=== PATIENT | female | born 1965 | race Two or more races ===

== ENCOUNTER → 2020-02-12 | Emergency (ER) | payer OTHER ==
[~2020-02-12] VITALS: Ht 157.5 cm; Wt 79.4 kg
[~2020-02-12] MED LIST: HYZAAR 100-251 UDTAB PO; NORVASC2.5 M1; ZYNCOF 20-400120 ML PO
== END | disposition home or self-care (01) ==
LOC: ER 17:47
DX: R31.29 Other microscopic hematuria (principal)

== ENCOUNTER 2021-08-20 14:39 | Emergency (ER) | payer OTHER ==
[~2021-08-20] VITALS: Ht 157.5 cm; Wt 81.6 kg
[2021-08-20] MEDS ORDERED: ALDACTONE25 MG PO (15:09)
[2021-08-20] MEDS ORDERED: CIPRO500 MG PO (19:20)
[2021-08-20] MEDS ORDERED: TAMS0.4C PO (19:20)
== END 2021-08-20 19:32 | disposition home or self-care (01) ==
LOC: ER 14:39
DX: N39.0 Urinary tract infection, site not specified (principal); N20.0 Calculus of kidney

== ENCOUNTER 2023-10-16 14:05 | Emergency (ER) | payer OTHER ==
[~2023-10-16] VITALS: Ht 157.5 cm; Wt 83.0 kg
[~2023-10-16 14:05] MED LIST changes: +ALDACTONE25 MG PO; +CIPRO500 MG PO; +TAMS0.4C PO
[2023-10-16 19:26] LABS: HEMATOCRIT 39.9 % (36.0-45.00); HEMOGLOBIN 13.5 g/dL (12.0-15.00); MEAN CELL VOLUME 84.4 fL (80.00-100.00); MEAN CORPUSCULAR HEMOGLOBIN 28.5 pg (27.00-32.0); MEAN CORPUSCULAR HGB CONC 33.8 g/dl (32.0-36.0); PLATELET COUNT 266 K/uL (150-450); RED BLOOD COUNT 4.72 M/uL (4.00-6.00); RED CELL DISTRIBUTION WIDTH 14.6 % (11.5-14.5)
== END 2023-10-16 20:57 | disposition home or self-care (01) ==
LOC: ER 14:05
PROVIDERS: General Practice
DX: J06.9 Acute upper respiratory infection, unspecified (principal); N39.0 Urinary tract infection, site not specified; R53.81 Other malaise; Z20.822 Contact with and (suspected) exposure to COVID-19